=== PATIENT | female | born 1960 | race Caucasian/White ===

== ENCOUNTER 2017-10-12 16:54 | Emergency (ER) | END 2017-10-12 17:27 | disposition home or self-care (01) ==

== ENCOUNTER 2018-01-05 23:23 | Emergency (ER) | END 2018-01-06 01:39 | disposition home or self-care (01) ==

== ENCOUNTER 2018-06-08 14:25 | Emergency (ER) | payer OTHER ==
[~2018-06-08] VITALS: Wt 80.3 kg
[~2018-06-08 14:25] MED LIST: BEN50 PO; CEPH-443 PO; FAMO-96 PO; IBUP-1542 PO; SULF1TAB31 PO
[2018-06-08 14:26] VITALS: BP 173/106; PULSE 70; RESP 22
--- NOTE | 2018-06-08 15:38 | ERD ---
ER Documentation Chief Complaint Chief Complaint mech fall onto R side of face HPI The patient is a 57-year-old female, presenting the ER because of right facial pain and headache after she had a mechanical fall around 1:45 pm from the rain. She denies syncope, near syncope, neck pain, chest pain, dyspnea, abdominal pain, vomiting, dysuria. She does not smoke nor drink Past medical history: SLE, fibromyalgia, hypertension Past surgical history: None ROS All systems reviewed and are negative except as per history of present illness. Medications Home Meds Active Scripts Ibuprofen* (Motrin*) 600 Mg Tab, 600 MG PO Q6H PRN for PAIN AND OR ELEVATED TEMP, #20 TAB Prov:VIJAYA XIONG MD 06/08/18 Diphenhydramine Hcl* (Benadryl*) 50 Mg Cap, 50 MG PO Q6H PRN for ITCHING/RASH, #30 CAP Prov:JAS BOOGIE NP 01/06/18 Ibuprofen* (Motrin*) 600 Mg Tab, 600 MG PO Q6H PRN for PAIN AND OR ELEVATED TEMP, #30 TAB Prov:JAS BOOGIE NP 01/06/18 Cephalexin* (Keflex*) 500 Mg Capsule, 500 MG PO QID for 10 Days, CAP Prov:JAS BOOGIE NP 01/06/18 Sulfamethoxazole/Trimethoprim* (Bactrim Ds* Tablet) 1 Each Tablet, 1 TAB PO BID, #20 TAB Prov:JAS BOOGIE NP 01/06/18 Cephalexin* (Keflex*) 500 Mg Capsule, 500 MG PO TID for 10 Days, CAP Prov:NOEMÍ MORA PA-C 10/12/17 Famotidine* (Pepcid*) 20 Mg Tablet, 20 MG PO BID for 4 Days, #30 TAB Prov:DEX PEARSON PA-C 05/03/16 Allergies Allergies: Coded Allergies: No Known Allergy (Unverified , 10/12/17) PMhx/Soc Hx Alcohol Use: No Hx Substance Use: No Hx Tobacco Use: No Physical Exam Vitals Vital Signs Date Temp Pulse Resp B/P (MAP) Pulse Ox O2 O2 Flow FiO2 Time Delivery Rate 06/08/18 99.0 70 22 173/106 97 14:26 (128) Physical Exam Const: No acute distress. Head: Atraumatic. Minimal right-sided facial tenderness, no laceration or ecchymosis Eyes: Normal Conjunctiva. ENT: Normal External Ears, Nose and Mouth. Neck: Full range of motion. No meningismus. Resp: Clear to auscultation bilaterally. Cardio: Regular rate and rhythm. Abd: Soft, non distended, normal bowel sounds, non tender. Skin: No petechiae or rashes. Back: No midline or flank tenderness. Ext: No cyanosis, or edema. Neur: Awake and alert. No focal deficit Psych: Normal Mood and Affect. Results 24 hrs Current Medications Medications Dose Sig/Joseph Start Time Status Last (Trade) Ordered Route PRN Stop Time Admin Dose Reason Admin 1 tab ONCE ONCE 06/08/18 DC 06/08/18 Acetaminophen PO 17:00 17:07 / 06/08/18 17:01 Hydrocodone Bitart ([place] (5/325)) Ondansetron 4 mg ONCE STAT 06/08/18 DC 06/08/18 HCl (Zofran ODT 16:55 16:58 Odt) 06/08/18 16:56 1 tab ONCE ONCE 06/08/18 DC 06/08/18 Acetaminophen PO 17:00 17:07 / 06/08/18 17:01 Hydrocodone Bitart ([place] (5/325)) Procedures/[place] [id number] Radiology Main Line: [phone] DIAGNOSTIC IMAGING REPORT Patient: GEOFF KING : 1960 Age: 57 Sex: F [id number] DOS: 06/08/18 1542 Ordering MD: VIJAYA XIONG MD Location: E/R Room/Bed: PROCEDURE: CT head CLINICAL INDICATION: Headaches TECHNIQUE: Contiguous 2.5 mm axial images were obtained from the vertex to the skull base. No intravenous contrast was administered. The calculated dose length product (DLP) = 634.23 mGy-cm. The CTDlvol = 39.57 mGy. One or more of the following dose reduction techniques were used: Automated exposure control, adjustment of the mA and or KV according to patient size, or use of iterative reconstruction technique. DICOM images are available. COMPARISON: None FINDINGS: There is no evidence of acute intracranial hemorrhage or acute territorial infarct. No mass or mass effect is seen on this noncontrast study. There is calcification of bilateral basal ganglia which is sometimes associated with hyperparathyroidism or pseudohypoparathyroidism The ventricles and cisterns are normal in size and configuration. The larkin-white matter differentiation is within normal limits. The visualized paranasal sinuses are normally aerated. The bony calvarium is unremarkable IMPRESSION: 1. No acute intracranial hemorrhage or acute territorial infarct. 2. Calcification of bilateral basal ganglia. This is sometimes associated with metabolic abnormality such as a hypoparathyroidism or pseudohypoparathyroidism. RPTAT: HH .Jose Rafael Ayala MD, Date Time Electronically viewed and signed by .Jose Rafael Ayala MD, MD on 06/08/2018 16:31 .W/ CC: VIJAYA XIONG MD [id number] [place] [id number] Radiology Main Line: [phone] DIAGNOSTIC IMAGING REPORT Patient: GEOFF KING : 1960 Age: 57 Sex: F MR #: [id number] DOS: 06/08/18 1542 Ordering MD: VIJAYA XIONG MD Location: E/R Room/Bed: PROCEDURE: CT face without contrast CLINICAL INDICATION: Fall, face pain TECHNIQUE: CT of the face without contrast was performed on a multidetector CT scanner, with multiplanar reformats. One or more of the following dose reduction techniques were used: Automated exposure control, adjustment in mA and / or kV according to patient size, use of iterative reconstructive technique. CTDIvol = 29 mGy and DLP = 523 mGy-cm. DICOM images are available. COMPARISON: None available. FINDINGS: No fracture is identified. No injury of the orbital structures is identified. Orbital structures are unremarkable. Temporomandibular joints are intact. Noted on the CT, eighth, bilateral maria luisa bullosa and leftward nasal septal deviation. No soft tissue hematoma, gas or radiopaque foreign body is seen. IMPRESSION: No facial fracture/orbital injury identified. RPTAT: VV .Donta Perez MD, MD Date Time Electronically viewed and signed by .Donta Perez MD, on 06/08/2018 16:38 .O/ CC: VIJAYA XIONG MD [id number] MEDICAL MAKING DECISION: The patient is a 57-year-old female, presenting with a cute scalp contusion, acute facial contusion, was treated with [place] 10 mg p.o. for pain with good response, is stable for outpatient follow-up The differential diagnoses considered include but are not limited to subarachnoid hemorrhage, occult trauma, CVA, meningitis, encephalitis, hypertension, tension, migraine, cluster, narcotic withdrawal, cervical spine disease. Departure Diagnosis: Primary Impression: Scalp contusion Additional Impression: Facial contusion Condition: Good Comments She was discharged with Motrin I discussed the findings with the patient. I advised the patient to follow-up with the primary physician in about 2-3 days, sooner if needed and return if any concern. Disclaimer: Inadvertent spelling and grammatical errors are likely due to EHR/dictation software use and do not reflect on the overall quality of patient care. Also, please note that the electronic time recorded on this note does not necessarily reflect the actual time of the patient encounter. VIJAYA XIONG MD Jun 08, 2018 15:38
[2018-06-08] MEDS ORDERED: ONDANSETRON (ODT) 4 MG TAB ODT STA (16:55)
[2018-06-08] MEDS ORDERED: IBUP-1542 PO (16:57)
[2018-06-08] MEDS ORDERED: HYDROCODONE/APAP (5/325) TAB PO ONE ×2 (17:00)
== END 2018-06-08 17:16 | disposition home or self-care (01) ==
LOC: E/R 14:25
DX: S00.03XA Contusion of scalp, initial encounter (principal); S00.83XA Contusion of other part of head, initial encounter; I10 Essential (primary) hypertension; W18.39XA Other fall on same level, initial encounter; Y92.9 Unspecified place or not applicable
CPT/HCPCS: 70450; 70486; Z7502; Z7610